=== PATIENT | male | born 1960 | race Caucasian/White ===

== ENCOUNTER 2018-05-11 15:55 | Inpatient (IN) | payer OTHER ==
[~2018-05-11] VITALS: Ht 167.6 cm; Wt 85.3 kg
--- NOTE | 2018-05-11 16:02 | NUR ---
PT [id number], C/O CP STARTED 8AM, WENT TO PMD AND PER MD TO CALL 911, PT IS AAOX4, NOT IN RESPIRATORY DISTRESS, V/S STABLE, HOOKED TO MONITOR, KEPT RESTED AND COMFORTABLE.
--- NOTE | 2018-05-11 16:10 | NUR ---
SEEN AND EXAMINED BY DR. KEANE.
--- NOTE | 2018-05-11 16:20 | NUR ---
LABS DRAWNED AND SENT TO LAB. AWAITING RESULTS.
[2018-05-11 16:22] LABS: BASOPHILS # (AUTO) 0.2 /CMM (0.0-0.2); BASOPHILS % (AUTO) 2.3 % (0.0-2.0); EOSINOPHILS % (AUTO) 5.6 % (0.0-6.0); HEMATOCRIT 44 % (39-51); HEMOGLOBIN 14.4 g/dL (13.5-17.5); LYMPHOCYTES # (AUTO) 2.8 /CMM (0.8-4.8); LYMPHOCYTES % (AUTO) 37.7 % (20.0-44.0); MEAN CORPUSCULAR HGB CONC 33 g/dl (31.0-36.0); MEAN CORPUSCULAR VOLUME 85 fL (80-96); MONOCYTES # (AUTO) 0.5 /CMM (0.1-1.30); MONOCYTES % (AUTO) 6.6 % (2.0-12.0); NEUTROPHILS # (AUTO) 3.5 /CMM (1.8-8.9); NEUTROPHILS % (AUTO) 47.8 % (43.0-81.0); PLATELET COUNT (AUTO) 223 /CMM (150-450); RED BLOOD CELL COUNT(AUTO) 5.17 MIL/uL (4.5-6.0); WHITE BLOOD COUNT (AUTO) 7.4 K/uL (4.3-11.0)
[2018-05-11 16:33] LABS: CALCIUM, SERUM 9.3 mg/dL (8.5-10.1); CARBON DIOXIDE 31 mmol/L (21-32); CHLORIDE 104 mmol/L (98-107); CREATININE 0.9 mg/dL (0.6-1.3); GLUCOSE 93 mg/dL (74-106); POTASSIUM 3.7 mmol/L (3.5-5.1); SODIUM SERUM 141 mmol/L (136-145); UREA NITROGEN, BLOOD 10 mg/dL (7-18)
--- NOTE | 2018-05-11 17:32 | NUR ---
PATIENT WILL GO TO TELE [phone]
[2018-05-11] MEDS ORDERED: METO25TA3 PO (17:36)
[2018-05-11] MEDS ORDERED: FLUT1BLS IH (17:36)
[2018-05-11] MEDS ORDERED: PRAV20TA4 PO (17:36)
[2018-05-11] MEDS ORDERED: ALBU8.5H8 IH (17:36)
[2018-05-11] MEDS ORDERED: BUSP5TAB3 PO (17:36)
[2018-05-11] MEDS ORDERED: LOSA25TA3 PO (17:36)
[2018-05-11] MEDS ORDERED: OMEP40CA37 PO (17:36)
[2018-05-11] MEDS ORDERED: GABA300C PO (17:36)
[2018-05-11] MEDS ORDERED: ERGO500040 PO (17:36)
[2018-05-11] MEDS ORDERED: NITR0.4T48 SL (17:36)
[2018-05-11] MEDS ORDERED: ASPI-1152 PO (17:36)
[2018-05-11] MEDS ORDERED: MECL12.582 PO (17:36)
--- NOTE | 2018-05-11 17:59 | NUR ---
REPORT GIVEN TO AKHIL ESCALANTE FOR SPIKE.
--- NOTE | 2018-05-11 18:35 | NUR ---
VALERIE CALLED X 2
[2018-05-11 19:00] VITALS: BP 109/69
--- NOTE | 2018-05-11 19:00 | NUR ---
RULING TECHNICIANCOMMUNITY WORKER NOTES RECEIVED ON BED FROM ER THIS 57 Y.O. MALE A/O X4,BREATHING REGULAR,NOT IN ANY FORM DISTRESS,ADMITTED FOR NON RADIATING CHEST PAIN AT HOME. DENIES CHEST PAIN AT THE MOMENT,ST-70 ON TELE MONITOR.PATIENT CURRENTLY SMOKER 2 PACKS PER DAY.WITH SALINE LOCK LEFT HAND INTACT AND PATENT.NO SKIN ISSUES.AMBULATE WITH STEADY GAIT.FAMILY MEMBER AT BEDSIDE.CALL LIGHT IN REACH,NEEDS ANTICIPATED.
[2018-05-11] MEDS ORDERED: MORPHINE SULFATE INJ 2 MG/ML DISP.SYRIN IV PRN (19:30)
[2018-05-11] MEDS ORDERED: NITROGLYCERIN 0.4 MG/TAB BOTTLE SL PRN (19:30)
[2018-05-11] MEDS ORDERED: ALBUTEROL FS 2.5 MG/0.5 ML VIAL.NEB NEB PRN (19:30)
[2018-05-11] MEDS ORDERED: HYDROCODONE/APAP 5/325MG 1 EACH TABLET PO PRN (19:30)
[2018-05-11] MEDS ORDERED: MAG HYDROX/AL HYDROX/SIMETH 30 ML UDC PO PRN (19:30)
[2018-05-11] MEDS ORDERED: CLONIDINE HCL 0.1 MG TABLET PO PRN (19:30)
[2018-05-11] MEDS ORDERED: ONDANSETRON HCL/PF 4 MG/2 ML VIAL IVP PRN (19:30)
[2018-05-11] MEDS ORDERED: Z GUARD REMEDY 2 OZ OINT TP PRN (19:30)
[2018-05-11] MEDS ORDERED: MAGNESIUM HYDROXIDE 30 ML UDC PO PRN (19:30)
[2018-05-11] MEDS ORDERED: MECLIZINE HCL 12.5 MG TABLET PO PRN (19:30)
[2018-05-11 20:00] VITALS: BP 109/69
--- NOTE | 2018-05-11 20:40 | NUR ---
DIGITAL STRATEGIST SENIOR MANAGER NOTES STARTED ON IVF NS AT 75ML/HR RATE VIA IV PUMP.
[2018-05-11] MEDS: IV NS 0.9% 1,000 ML IV PRN (20:45)
[2018-05-11] MEDS: GABAPENTIN 300 MG CAPSULE PO SCH (21:56)
[2018-05-11] MEDS: TEMAZEPAM 15 MG CAPSULE PO PRN (21:56)
--- NOTE | 2018-05-11 21:56 | NUR ---
NASCAR DRIVER NOTES MEDICATED WITH RESTORIL 15 MG PO ORDERED FOR INSOMNIA.
[2018-05-12] VITALS: BP 106/62
--- NOTE | 2018-05-12 02:00 | NUR ---
PULL WORKER NOTES SLEEPING,KEPT WARM AND COMFORTABLE.
[2018-05-12 04:00] VITALS: BP 103/66
--- NOTE | 2018-05-12 06:30 | NUR ---
COAGULANT DIPPER NOTES ON BED SLEEPING,EASILY AROUSABLE TO VERBAL STIMULI.DENIES CHEST PAIN.IVF IN PROGRESS.IN NO ACUTE DISTRESS.CALL LIGHT IN REACH,NEEDS ATTENDED.WILL ENDORSE TO DAY NURSE FOR SPIKE.
[2018-05-12 07:23] LABS: BASOPHILS # (AUTO) 0.1 /CMM (0.0-0.2); BASOPHILS % (AUTO) 1.7 % (0.0-2.0); EOSINOPHILS % (AUTO) 6.2 % (0.0-6.0); HEMATOCRIT 44 % (39-51); HEMOGLOBIN 14.4 g/dL (13.5-17.5); LYMPHOCYTES # (AUTO) 2.9 /CMM (0.8-4.8); LYMPHOCYTES % (AUTO) 39.6 % (20.0-44.0); MEAN CORPUSCULAR HGB CONC 33 g/dl (31.0-36.0); MEAN CORPUSCULAR VOLUME 84 fL (80-96); MONOCYTES # (AUTO) 0.6 /CMM (0.1-1.30); MONOCYTES % (AUTO) 8.2 % (2.0-12.0); NEUTROPHILS # (AUTO) 3.3 /CMM (1.8-8.9); NEUTROPHILS % (AUTO) 44.3 % (43.0-81.0); PLATELET COUNT (AUTO) 192 /CMM (150-450); RED BLOOD CELL COUNT(AUTO) 5.19 MIL/uL (4.5-6.0); WHITE BLOOD COUNT (AUTO) 7.5 K/uL (4.3-11.0)
--- NOTE | 2018-05-12 07:25 | NUR ---
RESOURCING CONSULTANT. PT WITH TELE SR 67 WITH PVC. PT A&0X4, TOLERATING ROOM AIR WITHOUT DISTRESS AND DENIES PAIN INCLUDING CP. PT WITH IVC AT L HAND G#20 WITH IVC PER RX. PT BED IN LOWEST LOCKED POSITION WITH HANDRIALSX2 AND CALL THOMASON WITHIN REACH. PT TRAY HELD AND NPO R/T CARDIOLOGY CONSULT. PT BRIEFED ON TODAY'S POC AND IS WITHOUT CONCERN OR COMPLAINT AT THIS TIME.
[2018-05-12 07:29] LABS: ALBUMIN 3.1 g/dL (3.4-5.0); BILIRUBIN,TOTAL 0.4 mg/dL (0.2-1.0); CALCIUM, SERUM 8.4 mg/dL (8.5-10.1); CREATININE 0.9 mg/dL (0.6-1.3); PHOSPHORUS 2.8 mg/dL (2.5-4.9); TOTAL PROTEIN, SERUM 5.8 g/dL (6.4-8.2)
[2018-05-12 07:30] VITALS: BP 118/68
[2018-05-12] MEDS: NICOTINE PATCH (14MG) 14 MG PATCH.TD24 TD SCH (08:44)
[2018-05-12] MEDS: FLUTICASONE/VILANTEROL 1 EACH BLST.W.DEV IH SCH (09:10)
[2018-05-12] MEDS: ATORVASTATIN 10 MG TABLET PO SCH (09:13)
[2018-05-12] MEDS: ASPIRIN EC 81 MG TABLET.DR PO SCH (09:17)
[2018-05-12] MEDS: LOSARTAN POTASSIUM 25 MG TABLET PO SCH (09:17)
[2018-05-12] MEDS: busPIRone 5 MG TABLET PO SCH ×2 (09:17→17:31)
[2018-05-12] MEDS: PANTOPRAZOLE 40 MG TABLET.DR PO SCH (09:20)
[2018-05-12] MEDS: METOPROLOL SUCCINATE 25 MG TAB.SR.24H PO SCH (09:20)
[2018-05-12] MEDS: IV NS 0.9% 1,000 ML IV PRN (09:25)
[2018-05-12] MEDS: ACETAMINOPHEN 325 MG TABLET PO PRN ×2 (14:29→21:51)
[2018-05-12] MEDS ORDERED: METOPROLOL TARTRATE INJ 5 MG/5 ML AMPUL ONE ×5 (14:38→15:56)
[2018-05-12] MEDS ORDERED: IOHEXOL-350 100 ML VIAL IV ONE (15:29)
[2018-05-12] MEDS ORDERED: CT SWABBABLE VALVE TRANS SET 1 EA INFUS.SET MC ONE (15:29)
[2018-05-12] MEDS ORDERED: IV NS 0.9% 250 ML IV ONE (15:29)
[2018-05-12] MEDS ORDERED: NITROGLYCERIN 0.4 MG/TAB BOTTLE ONE (15:45)
[2018-05-12 16:00] VITALS: BP 121/75
--- NOTE | 2018-05-12 17:00 | NUR ---
FAMILY PROTECTION SPECIALIST. PT HINKING TO LEAVE AMA R/T BROKEN CT MACHINE HOWEVER, PT INFORMED CT WORKING AND CAN DO IN AM. PT WILL WAIT FOR CTCA, RADIOLOGY CALLED AND NS AWARE.
--- NOTE | 2018-05-12 18:07 | NUR ---
YARD JOCKEY. PT A&0X4, TOLERATING ROOM AIR WITHOUT DISTRESS AND DENIES PAIN INCLUDING CP. PT WITH IVC AT L HAND G#20 SL AND R FA G 20 WITH IVF PER RX. PT BED IN LOWEST LOCKED POSITION WITH HANDRIALSX2 AND CALL THOMASON WITHIN REACH. PT WITHOUT CONCERN OR COMPLAINT A THIS TIME. WILL ENDORSE TO NIGHT NURSE AT BEDSIDE FOR SPIKE.
--- NOTE | 2018-05-12 19:30 | NUR ---
RN MS OPENING NOTES RECEIVED PT IN BED, AWAKE ALERT ORIENTED X4, AT BEDSIDE. BREATHING EVEN AND UNLABORED ON ROOM AIR, NO SOB NOTED. NO COMPLAINT OF PAIN OR DISCOMFORT AT THIS TIMES, IV ACCESS ON THE L HAND #20G AND R FA #18G WITH NS @75ML/HR. BED IN LOWEST LOCKED POSITION, CALL LIGHT WITHIN REACH AT ALL TIMES, WILL CONTINUE TO MONITOR
[2018-05-12 20:00] VITALS: BP 115/72
[2018-05-12] MEDS: TEMAZEPAM 15 MG CAPSULE PO PRN (21:04)
[2018-05-12] MEDS: GABAPENTIN 300 MG CAPSULE PO SCH (21:04)
[2018-05-13] MEDS: IV NS 0.9% 1,000 ML IV PRN (03:32)
[2018-05-13 03:46] VITALS: BP 115/72
--- NOTE | 2018-05-13 06:32 | NUR ---
RN MS CLOSING NOTES PT REMAINS IN BED, AWAKE ALERT ORIENTED X4. BREATHING EVEN AND UNLABORED ON ROOM AIR, NO SOB NOTED. NO COMPLAINT OF PAIN OR DISCOMFORT AT THIS TIMES, STATES HAVING SLEPT VERY GOOD. NPO FOR CTCA. IV ACCESS ON THE L HAND #20G AND R FA #18G WITH NS @75ML/HR. BED IN LOWEST LOCKED POSITION, CALL LIGHT WITHIN REACH AT ALL TIMES, WILL ENDORSE TO DAY NURSE FOR SPIKE.
[2018-05-13] MEDS: PANTOPRAZOLE 40 MG TABLET.DR PO SCH (07:30)
--- NOTE | 2018-05-13 07:35 | NUR ---
MS RN OPENING NOTES RECEIVED PT AWAKE IN BED IN NO ACUTE SIGNS OF DISTRESS. A/O X4. ABLE TO VERBALIZED NEEDS, NO C/O PAIN OR DISCOMFORTS VOICED AT THIS TIME. PT FOR CTCA TODAY, NPO POST MIDNIGHT MAINTAINED. ON ROOM AIR, BREATHING EVEN AND UNLABORED. IV ACCESS ON THE LEFT HAND #20G AND RFA #18G BOTH INTACT AND PATENT, IVF OF NS @75ML/HR INFUSING WELL. BED IN LOWEST LOCKED POSITION, CALL LIGHT WITHIN REACH. WILL CONTINUE TO MONITOR
[2018-05-13 08:00] VITALS: BP 113/69
[2018-05-13] MEDS: NICOTINE PATCH (14MG) 14 MG PATCH.TD24 TD SCH (08:45)
[2018-05-13] MEDS: FLUTICASONE/VILANTEROL 1 EACH BLST.W.DEV IH SCH (08:46)
[2018-05-13] MEDS: METOPROLOL SUCCINATE 25 MG TAB.SR.24H PO SCH (08:46)
[2018-05-13] MEDS: ATORVASTATIN 10 MG TABLET PO SCH (09:00)
[2018-05-13] MEDS: ASPIRIN EC 81 MG TABLET.DR PO SCH (09:00)
[2018-05-13] MEDS: LOSARTAN POTASSIUM 25 MG TABLET PO SCH (09:00)
[2018-05-13] MEDS: busPIRone 5 MG TABLET PO SCH (09:00)
[2018-05-13] MEDS ORDERED: IV NS 0.9% 250 ML IV ONE (09:41)
[2018-05-13] MEDS ORDERED: CT SWABBABLE VALVE TRANS SET 1 EA INFUS.SET MC ONE (09:41)
[2018-05-13] MEDS ORDERED: IOHEXOL-350 100 ML VIAL IV ONE (09:41)
[2018-05-13] MEDS ORDERED: METOPROLOL TARTRATE INJ 5 MG/5 ML AMPUL ONE ×2 (09:56→10:41)
[2018-05-13] MEDS ORDERED: KEY,NONCONTROL,TO KEEP IN PYXI 1 EA MC ONE (09:58)
[2018-05-13] MEDS ORDERED: METOPROLOL TARTRATE INJ 5 MG/5 ML AMPUL IVP PRN (10:00)
[2018-05-13] MEDS ORDERED: NITROGLYCERIN 0.4 MG/TAB BOTTLE SL ONE (10:00)
--- NOTE | 2018-05-13 11:15 | NUR ---
ICU/RN: S/P CTA Pt transported back to room s/p CTA; tolerated procedure well; VSS, back to baseline. NSR on monitor. Report given to AKHIL Mccabe for SPIKE.
--- NOTE | 2018-05-13 11:44 | NUR ---
RN NOTES CTCA DONE. V/S STABLE POST CTCA. WILL F/U RESULTS
[2018-05-13 16:06] VITALS: BP 111/62
--- NOTE | 2018-05-13 16:27 | NUR ---
MS MERCHANDISE PICKUP/RECEIVING ASSOCIATE NOTES PT DISCHARGE TO HOME IN STABLE CONDITION. A/O X 4. SIGNED AND VERBALIZED UNDERSTANDING TO DISCHARGE INSTRUCTIONS. ALL BELONGINGS ACCOUNTED FOR AND SIGNED. SKIN IS INTACT. REMOVED PIVS WITH NO BLEEDING NOTED. EDUCATED SMOKING CESSATION ENCOURAGED. HEALTH TEACHINGS GIVEN AND VERBALIZED UNDERSTANDING. PT LEFT THE UNIT AT 1615, AMBULATORY ACCOMPANIED BY SPOUSE AND RN TO THE LOBBY. MD AND CHARGE NURSE AWARE OF DISCHARGE.
== END 2018-05-13 16:15 | disposition home or self-care (01) | DRG 198 ==
LOC: ER 16:02 → TELE 17:57 → MED 05-12 08:41
PROVIDERS: ADMIT Nurse Practitioner Acute Care; ATTEND Nurse Practitioner Acute Care
DX: I25.10 Atherosclerotic heart disease of native coronary artery without angina pectoris (principal); D68.59 Other primary thrombophilia; E83.51 Hypocalcemia; I10 Essential (primary) hypertension; J44.9 Chronic obstructive pulmonary disease, unspecified; R07.89 Other chest pain; K21.9 Gastro-esophageal reflux disease without esophagitis; F17.200 Nicotine dependence, unspecified, uncomplicated; Z79.51 Long term (current) use of inhaled steroids; Z79.82 Long term (current) use of aspirin; Z79.899 Other long term (current) drug therapy; E78.00 Pure hypercholesterolemia, unspecified
CPT/HCPCS: 36415; 71045-TC; 75574; 80048-TC; 80053-TC; 80061-TC; 83735-TC; 84100-TC; 84484-TC; 85025-TC; 85730-TC; 87081-TC; 93307-TC; G0378; J3490; J7030; J7050; Q9967

== ENCOUNTER 2018-09-23 20:57 | Emergency (ER) | payer OTHER ==
[~2018-09-23] VITALS: Ht 177.8 cm; Wt 78.5 kg
[~2018-09-23 20:57] MED LIST: ALBU8.5H8 IH; ASPI-1152 PO; BUSP5TAB3 PO; ERGO500040 PO; FLUT1BLS IH; GABA300C PO; LOSA25TA3 PO; MECL12.582 PO; METO25TA3 PO; NITR0.4T48 SL; OMEP40CA37 PO; PRAV20TA4 PO
--- NOTE | 2018-09-23 21:05 | NUR ---
PT BIBRA C/O CHEST PAIN X 3 DAYS, PER EMS PT WAS GIVEN 3 SPRAYS OF NITRO, 162MG OF ASPIRIN. PT AXO4. RESPIRATIONS EVEN AND UNLABORED. PT PUT ON THE ECOTHERAPIST AND PULSE OX. PENDING EVAL FROM ER .
--- NOTE | 2018-09-23 21:06 | NUR ---
HIGH SCHOOL ASSISTANT FOOTBALL COACH AT BEDSIDE. LABS DRAWN, SENT TO LAB.
[2018-09-23 21:25] LABS: BASOPHILS # (AUTO) 0.1 /CMM (0.0-0.2); BASOPHILS % (AUTO) 1.5 % (0.0-2.0); EOSINOPHILS % (AUTO) 5.6 % (0.0-6.0); HEMATOCRIT 46 % (39-51); HEMOGLOBIN 14.7 g/dL (13.5-17.5); LYMPHOCYTES # (AUTO) 3.8 /CMM (0.8-4.8); LYMPHOCYTES % (AUTO) 42.1 % (20.0-44.0); MEAN CORPUSCULAR HGB CONC 32 g/dl (31.0-36.0); MEAN CORPUSCULAR VOLUME 84 fL (80-96); MONOCYTES # (AUTO) 0.6 /CMM (0.1-1.30); MONOCYTES % (AUTO) 6.8 % (2.0-12.0); PLATELET COUNT (AUTO) 220 /CMM (150-450); RED BLOOD CELL COUNT(AUTO) 5.43 MIL/uL (4.5-6.0)
[2018-09-23] MEDS ORDERED: LIDOCAINE VISCOUS 2% UD 15 ML UDC ONE (21:25)
[2018-09-23] MEDS ORDERED: PANTOPRAZOLE 40 MG VIAL ONE (21:25)
[2018-09-23] MEDS ORDERED: MAG HYDROX/AL HYDROX/SIMETH 30 ML UDC ONE (21:25)
[2018-09-23] MEDS ORDERED: PANTOPRAZOLE 40 MG VIAL IV ONE (21:30)
[2018-09-23] MEDS ORDERED: LIDOCAINE VISCOUS 2% UD 15 ML UDC MM ONE (21:30)
[2018-09-23] MEDS ORDERED: MAG HYDROX/AL HYDROX/SIMETH 30 ML UDC PO ONE (21:30)
[2018-09-23 21:34] LABS: CALCIUM, SERUM 9.1 mg/dL (8.5-10.1); CARBON DIOXIDE 32 mmol/L (21-32); CHLORIDE 104 mmol/L (98-107); CREATININE 1.2 mg/dL (0.6-1.3); GLUCOSE 92 mg/dL (74-106); POTASSIUM 4.4 mmol/L (3.5-5.1); SODIUM SERUM 142 mmol/L (136-145); UREA NITROGEN, BLOOD 13 mg/dL (7-18)
[2018-09-23 22:21] VITALS: BP 100/69
--- NOTE | 2018-09-23 22:21 | NUR ---
DPatient discharged to home in stable condition. Written and verbal after care instructions given. Patient verbalizes understanding of instruction. IV removed. Catheter intact and site benign. Pressure and 4x4 applied to site. No bleeding noted.
== END 2018-09-23 22:22 | disposition home or self-care (01) ==
LOC: ER 21:02
DX: R07.89 Other chest pain (principal); F17.200 Nicotine dependence, unspecified, uncomplicated; I10 Essential (primary) hypertension; E78.00 Pure hypercholesterolemia, unspecified; J44.9 Chronic obstructive pulmonary disease, unspecified; K21.9 Gastro-esophageal reflux disease without esophagitis; Z79.82 Long term (current) use of aspirin; Z79.899 Other long term (current) drug therapy
CPT/HCPCS: 36415; 71045; 80048; 84484; 85025; 93005; 96374; 99284; 99406; C9113

== ENCOUNTER 2020-03-25 13:46 | Emergency (ER) | payer OTHER ==
[~2020-03-25] VITALS: Ht 172.7 cm; Wt 90.7 kg
[~2020-03-25 13:46] MED LIST changes: -ASPI-1152 PO; +ASPI-1420 PO; +MECL-182 PO; -MECL12.582 PO; +OMEP40CA13 PO; -OMEP40CA37 PO
--- NOTE | 2020-03-25 15:15 | NUR ---
BIBFAMILY FROM HOME TO ER BED 24. AAOX4. NOT IN RESP DISTRESS. AMBULATORY. BROUGHT IN FOR TESTICULAR PAIN AND WELL L FLANK PAIN. PT IS NOTED W/ SWELLING ON BOTH LEFT AND TIGHT TESTICLE. PAIN IS RATE 8/10. MD WAS AT THE BEDSIDE FOR EVAL. ORDERS RECEIVED, NOTED AND CARRIED OUT. US AT BEDSIDE.
[2020-03-25] MEDS ORDERED: ONDANSETRON HCL/PF 4 MG/2 ML VIAL ONE (15:28)
[2020-03-25] MEDS ORDERED: MORPHINE SULFATE INJ 4 MG/ML DISP.SYRIN ONE (15:28)
[2020-03-25] MEDS ORDERED: MORPHINE SULFATE INJ 2 MG/ML DISP.SYRIN IV ONE (15:30)
[2020-03-25] MEDS ORDERED: ONDANSETRON HCL/PF 4 MG/2 ML VIAL IVP ONE (15:30)
--- NOTE | 2020-03-25 15:31 | NUR ---
ARTHUR [phone]
[2020-03-25 15:54] LABS: BASOPHILS # (AUTO) 0.1 /CMM (0.0-0.2); BASOPHILS % (AUTO) 1.2 % (0.0-2.0); EOSINOPHILS % (AUTO) 2.8 % (0.0-6.0); HEMATOCRIT 47 % (39-51); HEMOGLOBIN 14.9 g/dL (13.5-17.5); LYMPHOCYTES # (AUTO) 2.3 /CMM (0.8-4.8); LYMPHOCYTES % (AUTO) 22.2 % (20.0-44.0); MEAN CORPUSCULAR HGB CONC 32 g/dl (31.0-36.0); MEAN CORPUSCULAR VOLUME 84 fL (80-96); MONOCYTES # (AUTO) 0.8 /CMM (0.1-1.30); MONOCYTES % (AUTO) 7.7 % (2.0-12.0); NEUTROPHILS # (AUTO) 6.7 /CMM (1.8-8.9); NEUTROPHILS % (AUTO) 66.1 % (43.0-81.0); PLATELET COUNT (AUTO) 301 /CMM (150-450); RED BLOOD CELL COUNT(AUTO) 5.53 MIL/uL (4.5-6.0); WHITE BLOOD COUNT (AUTO) 10.2 K/uL (4.3-11.0)
[2020-03-25 17:16] LABS: CALCIUM, SERUM 9.6 mg/dL (8.5-10.1); POTASSIUM 4.2 mmol/L (3.5-5.1)
[2020-03-25 17:27] LABS: ALBUMIN 3.5 g/dL (3.4-5.0); BILIRUBIN,DIRECT 0.2 mg/dL (0.0-0.2); BILIRUBIN,TOTAL 0.4 mg/dL (0.2-1.0); TOTAL PROTEIN, SERUM 8.3 g/dL (6.4-8.2)
[2020-03-25] MEDS ORDERED: IOHEXOL-300 100 ML VIAL IV ONE (17:43)
[2020-03-25] MEDS ORDERED: IV NS 0.9% 250 ML IV ONE (17:44)
--- NOTE | 2020-03-25 17:48 | NUR ---
PT TO CT
[2020-03-25 18:38] LABS: BILIRUBIN,URINE NEGATIVE (NEGATIVE); BLOOD, URINE SMALL Ery/uL (NEGATIVE); COLOR,URINE YELLOW (YELLOW); LEUKOCYTE ESTERASE ,URINE SMALL (NEGATIVE); NITRITE, URINE POSITIVE (NEGATIVE); PROTEIN,URINE NEGATIVE (NEGATIVE); UGLUCOSE NEGATIVE (NEGATIVE); UROBILINOGEN,URINE 0.2 EU/dL (0.2)
[2020-03-25 18:49] LABS: BACTERIA,URINE 4+ /HPF (None Seen); SQUAMOUS EPITHELIAL CELL,UR 0-2 /HPF (None Seen)
--- NOTE | 2020-03-25 19:10 | NUR ---
Patient discharged to home in stable condition. Written and verbal after care instructions given. Patient verbalizes understanding of instruction.IV removed. Catheter intact and site benign. Pressure and 4x4 applied to site. No bleeding noted. Pt ambulatory with a steady gait
[2020-03-25 19:12] VITALS: BP 133/75
== END 2020-03-25 19:13 | disposition home or self-care (01) ==
LOC: ER 13:54
DX: N45.3 Epididymo-orchitis (principal); I10 Essential (primary) hypertension; E78.5 Hyperlipidemia, unspecified; K21.9 Gastro-esophageal reflux disease without esophagitis; F17.200 Nicotine dependence, unspecified, uncomplicated; Z79.82 Long term (current) use of aspirin; Z79.899 Other long term (current) drug therapy
CPT/HCPCS: 36415; 74177; 76870; 80048; 80076; 81001; 83605; 83690; 85025; 87086; 96374; 96375; 99285; J2270; J2405; J7050; Q9967; 87186-TC